=== PATIENT | male | born 1985 ===

== ENCOUNTER 2017-02-11 17:52 | Emergency (ER) | payer MEDICAID ==
[2017-02-11 18:00] VITALS: BP 124/74; PULSE 77; RESP 18; TEMP 97.7; O2SAT 97
--- NOTE | 2017-02-11 19:17 | C.PDOC ---
History Of Present Illness 31 yr old male presents to the ER stating his daughter nasra stevenson fell on his right foot today around noon. Patient states the pain gradually developed, is able to walk but has significant discomfort over the foot. Patient denies obvious deformity, leg pain, weakness or numbness. - HPI Time Seen by Provider: 02/11/17 18:42 Chief Complaint (Nursing): Trauma History Per: Patient History/Exam Limitations: no limitations Onset/Duration Of Symptoms: Sudden Onset (around noon ) Past Medical History Reviewed: Historical Data, Nursing Documentation, Vital Signs Vital Signs: Last Vital Signs Temp 97.7 F 02/11/17 17:56 Pulse 77 02/11/17 17:56 Resp 18 02/11/17 17:56 BP 124/74 02/11/17 17:56 Pulse Ox 97 02/11/17 19:18 Family History: States: No Known Family Hx - Social History Hx Alcohol Use: Yes Hx Substance Use: No - Immunization History Hx Tetanus Toxoid Vaccination: Yes Hx Influenza Vaccination: No Hx Pneumococcal Vaccination: No Review Of Systems Except As Marked, All Systems Reviewed And Found Negative. Musculoskeletal: Positive for: Foot Pain (Right foot. ). Negative for: Leg Pain Neurological: Negative for: Weakness, Numbness Physical Exam - Physical Exam Appears: Well, Non-toxic, No Acute Distress Skin: Warm, Dry, No Rash Extremity: Normal ROM, Tenderness (Right Foot:Tenderness over the dorsal aspect foot overlying the 1st metatarsal bone and 1st MTPJ ), No Calf Tenderness, Capillary Refill (less than 2sec to Right 1s toe), No Deformity, Swelling (mild nos edema to Right dorsal foot.), Other (small subungual hematoma to Right 1st toe 25 %.) Neurological/Psych: Oriented x3, Normal Speech, Normal Motor, Normal Sensation, Normal Reflexes Gait: Steady ED Course And Treatment O2 Sat by Pulse Oximetry: 97 - Other Rad Right foot X-Ray: Interpreted by Me, Viewed By Me Interpretation: no acute fx or dislocation Progress Note: On re-evaluation, pt is afebrile, hemodynamicaly stable. Ambulatoy rin ED with stable gait. Right foot: exam c/w contusion to 1st toe/ dorsal foot. NO palpable deformity, FAROM, no neurovascula deficits. xray: (-) acute fx. [place] tape to Right 1st toe, analgesics given. Pt advised. ref. to F/u with spot welder in 2-3 days for re-eavl. return if any new hcanges. Medical Decision Making Medical Decision Making: PLAN: * X-Ray - Right Foot * Tramadol PO Disposition Counseled Patient/Family Regarding: Studies Performed, Diagnosis, Need For Followup, Rx Given - Disposition Referrals: Podiatry Clinic [Outside] Disposition: HOME/ ROUTINE Disposition Time: 19:20 Condition: STABLE Additional Instructions: RICE-rest, ice, compression, elevation Take medication as prescribed Follow up with [facility] in 2-3 days for re-evaluation. Return to ED if any worsening or new changes. Prescriptions: traMADol [Ultram] 50 mg PO TID #7 tab Instructions: Foot Contusion (ED) - Clinical Impression Clinical Impression: Foot contusion - PA / [employer] / Resident Statement MD/DO has reviewed & agrees with the documentation as recorded. - Scribe Statement The provider has reviewed the documentation as recorded by the Scribe Joann Cordero All medical record entries made by the Scribe were at my direction and personally dictated by me. I have reviewed the chart and agree that the record accurately reflects my personal performance of the history, physical exam, medical decision making, and the department course for this patient. I have also personally directed, reviewed, and agree with the discharge instructions and disposition.
--- NOTE | 2017-02-12 09:38 | RAD ---
PROCEDURE: Right Foot Radiographs. HISTORY: injury COMPARISON: None. FINDINGS: BONES: Normal. No fracture. JOINTS: Normal. SOFT TISSUES: Normal. OTHER FINDINGS: None. IMPRESSION: Normal right foot radiographs.
== END 2017-02-11 19:55 | disposition home or self-care (01) ==
LOC: C.ER 17:52
DX: S90.31XA Contusion of right foot, initial encounter (principal); W22.8XXA Striking against or struck by other objects, initial encounter